=== PATIENT | female | born 1965 | race Caucasian/White ===

== ENCOUNTER 2022-06-05 16:53 | Emergency (ER) | payer MEDICAID ==
[~2022-06-05] VITALS: Ht 162.6 cm; Wt 65.8 kg
[2022-06-05 16:58] VITALS: BP 158/80
--- NOTE | 2022-06-05 17:21 | NUR ---
ASSUMED PATIENT CARE, NURSING ASSESSMENT COMPLETED.
[2022-06-05 18:29] LABS: ANION GAP 11.1 (8-16); CARBON DIOXIDE 28.2 mmol/L (21-32); POTASSIUM 3.3 mmol/L (3.5-5.1)
[2022-06-05 19:01] LABS: CREATININE 0.8 mg/dL (0.6-1.3)
--- NOTE | 2022-06-05 19:42 | NUR ---
Assumed care of patient at change of shift. Introduced self to patient upon her returning from CT scan. Repositioned patient for comfort. Bed to low position sr up, continue to monitor.
[2022-06-05] MEDS ORDERED: LID5T TP (19:59)
[2022-06-05] MEDS ORDERED: IBUP-2213 PO (19:59)
[2022-06-05] MEDS ORDERED: ACET-8905 PO (20:05)
[2022-06-05] MEDS ORDERED: HYDROcodone/APAP 10/325 MG 1 TAB TAB PO STA (20:09)
--- NOTE | 2022-06-05 20:22 | NUR ---
patient ambulated to restroom, tolerated. will medicate w/ norco 10mg as ordered.
--- NOTE | 2022-06-05 20:30 | NUR ---
Patient discharged with v/s stable. Written and verbal after care instructions given and explained. Patient alert, oriented and verbalized understanding of instructions. Ambulatory with steady gait. All questions addressed prior to discharge. ID band removed. Patient advised to follow up with PMD. Rx of lidocaine patch, norco, and ibuprofen given. Patient educated on indication of medication including possible reaction and side effects. Opportunity to ask questions provided and answered.
[2022-06-05 20:31] VITALS: BP 144/73
== END 2022-06-05 20:30 | disposition home or self-care (01) ==
LOC: MED 16:53
DX: S30.0XXA Contusion of lower back and pelvis, initial encounter (principal); Z79.1 Long term (current) use of non-steroidal anti-inflammatories (NSAID); Z79.899 Other long term (current) drug therapy; Z79.891 Long term (current) use of opiate analgesic; V49.59XA Passenger injured in collision with other motor vehicles in traffic accident, initial encounter; Y93.89 Activity, other specified; Y92.410 Unspecified street and highway as the place of occurrence of the external cause; Y99.8 Other external cause status
CPT/HCPCS: 36415; 72131; 74177; 80048; 99285; Q9967